=== PATIENT | female | born 1960 | race Caucasian/White ===

== ENCOUNTER 2017-08-22 16:28 | Inpatient (IN) | payer OTHER ==
[~2017-08-22] VITALS: Ht 149.9 cm; Wt 121.6 kg
[2017-08-22 16:33] VITALS: BP 158/100
[2017-08-22] MEDS ORDERED: LIPITOR40 MG PO (16:37)
[2017-08-22] MEDS ORDERED: NEURONTIN600 MG PO (16:37)
[2017-08-22] MEDS ORDERED: VITAMINC500 PO (16:37)
[2017-08-22] MEDS ORDERED: ACIDOPHILUS1 EAC2 PO (16:38)
[2017-08-22] MEDS ORDERED: MAXZIDE-25 MG1 EACH PO (16:38)
[2017-08-22] MEDS ORDERED: ZANTAC 150MG T150 MG PO (16:38)
[2017-08-22] MEDS ORDERED: OMEPRAZOLE40 MG PO (16:38)
[2017-08-22] MEDS ORDERED: LEVEMIR SUBQ (16:39)
[2017-08-22] MEDS ORDERED: GLUCOPHAGE XR500 MG PO (16:39)
[2017-08-22] MEDS ORDERED: HUMALOG100 UNIT/2 SUBQ (16:39)
[2017-08-22] MEDS ORDERED: LISINOPRIL10 MG PO (16:39)
[2017-08-22] MEDS ORDERED: LEVALBUTER1.25 MG/0. INH (16:40)
[2017-08-22] MEDS ORDERED: COMBIVENT INH (16:40)
[2017-08-22] MEDS ORDERED: DUONEB 2.5-0.5 M3 ML INH (16:41)
[2017-08-22] MEDS ORDERED: PROAIR RESPICL90 MCG INH (16:41)
[2017-08-22] MEDS ORDERED: PERCOCET 10-321 EACH PO (16:41)
[2017-08-22] MEDS ORDERED: ASPIR 8181 M1 PO (16:42)
[2017-08-22 17:12] LABS: ABSOLUTE BASOPHILS 0.1 thou/uL (0.0-0.2); ABSOLUTE EOSINOPHILS 0.3 thou/uL (0.0-0.7); ABSOLUTE LYMPHOCYTES 2.9 thou/uL (0.8-5.3); ABSOLUTE MONOCYTES 0.6 thou/uL (0.0-1.2); ABSOLUTE NEUTROPHILS 5.6 thou/uL (1.6-8.1); BASOPHILS 0.6 %; EOSINOPHILS 3.2 %; HEMATOCRIT 48.5 % (37.0-47.0); HEMOGLOBIN 16.2 gm/dL (12.0-15.0); LYMPHOCYTES 30.7 %; MCH 32.2 pg (26.0-34.0); MCHC 33.4 g/dL (28.0-37.0); MCV 96.6 fL (80.0-100.0); MONOCYTES 5.9 %; MPV 8.4 fl. (7.2-11.1); NUCLEATED RBCS 0 /100WBC; PLATELET COUNT* 206 thou/uL (150-400); POLYS 59.6 %; RBC 5.02 mil/uL (4.20-5.00); RDW-CV 14.1 % (10.5-14.5); WBC 9.5 thou/uL (4.0-11.0)
[2017-08-22 17:13] LABS: ANION GAP 8 mmol/L (7-16); BUN 14 mg/dL (7-18); CALCIUM 8.9 mg/dL (8.5-10.1); CHLORIDE 102 mmol/L (98-107); CO2 27 mmol/L (21-32); CREATININE 1.2 mg/dL (0.6-1.3); GLUCOSE 271 mg/dL (70-99); POTASSIUM 4.6 mmol/L (3.5-5.1); SODIUM 137 mmol/L (136-145)
[2017-08-22 17:24] LABS: ALBUMIN 3.2 g/dL (3.4-5.0); ALKALINE PHOSPHATASE 131 U/L (46-116); SGOT 18 U/L (15-37); SGPT 29 U/L (30-65); TOTAL BILIRUBIN 0.3 mg/dL (<0.1-1.0); TOTAL PROTEIN 7.6 g/dL (6.4-8.2); TROPONIN-I LEVEL <0.06 ng/mL (<0.06)
--- NOTE | 2017-08-22 18:23 | NUR ---
AMBULTORY TO BATH ROOM, DINNER TRAY GIVEN, O2 ON
[2017-08-22 20:10] VITALS: BP 104/75
[2017-08-22 20:15] VITALS: BP 114/65
--- NOTE | 2017-08-22 20:15 | NUR ---
ADMITTED TO FLOOR PER CART ACCOMPANIED BY ER STAFF AND FAMILY WITH BELONGINGS. ORIENTED TO ROOM AND CALL LITE. HISTORY OBTAINED AND ASSESSMENT PERFORMED, SEE ADMIT NOTES. [place]. LUNGS DIM, CONGESTED COUGH HEARD-PT GIVEN SPECIMENT CUP AND EDUCATED IN NEED FOR SPUTUM SPECIMEN. L HAND IVF INFUSING PER GRAVITY, TO BE PLACED ON PUMP FOR INFUSION, ABX TO BE GIVEN WHEN RECEIVED FROM PHARMACY. O23L SAT 94%. ACCUCHECK 343, CALL TO BE PLACED TO DR FOR INSULIN ORDERS. UP WITH STEADY GAIT, REFUSING SCD, EDUCATION GIVEN. AOX4, PLEASANT.WILL CONTINUE TO MONITOR AND PROVIDE CARES NEEDED. CALL LITE IN EASY REACH, FAMILY AT BEDSIDE.
[2017-08-22] MEDS ORDERED: XANAX1 MG PO (21:42)
[2017-08-22 22:53] VITALS: BP 155/95
[2017-08-23 04:00] VITALS: BP 143/74
[2017-08-23 05:14] VITALS: BP 122/74
--- NOTE | 2017-08-23 05:56 | NUR ---
NEW ADMIT AT START OF SHIFT. AOX4, UP AD CRIS IN ROOM. LHAND IVF INFUSING PER PUMP, ABX GIVEN ORDERED. HS ACCUCHECK, LEVEMEIR INSULIN GIVEN. SPUTUM SAMPLE SENT TO LAB. NO LABS THIS MORNING. STARTED ON SEPSIS PROTOCOL IN ER BEFORE ADMISSION. O23L NC. RT TX GIVEN. NEEDS UA, PT AWARE. ATE CHICKEN WINGS WITH RANCH DRESSING AND DONUTS AT HS. CO SORE THROAT, DENIES NEED FOR PAIN MED. ABLE TO USE CALL LITE AND MAKE NEEDS KNOWN.
[2017-08-23 08:10] VITALS: BP 113/70
--- NOTE | 2017-08-23 13:40 | NUR ---
Nutrition: Consult received for "diabetes." Pt and were in room. They stated she has had DM for several yrs. She takes insulin, and she is on steroids currently. Wt: 267#. Pt stated the CHO controlled menu is good, but she doesn't have good teeth for some chewing. We discussed the menu and alternative ordering. Pt satisfied with this. Offered DM educ, and pt stated "you can leave the information." Pt stated to her that there might be some new info in the packet that they could read through. RD left information handouts with pt. Encouraged them to call with further questions/concerns. RD expects fair compliance. Mild risk.
[2017-08-23 16:55] VITALS: BP 130/70
--- NOTE | 2017-08-23 17:03 | NUR ---
SW met with pt to complete initial assessment, introduce self, and SW role. Pt lives at home with family and says she has a CPAP and O2 at night through [facility]. Pt wondered about a replacement nebulizer and SW to follow up with Cesilia at [facility] about the possibility of pt receiving new nebulizer. SW to continue to follow.
--- NOTE | 2017-08-23 17:44 | NUR ---
PATIENT REMAINED ALERT AND ORIENTED X'S 4. VITAL SIGNS AND SPO2 STABLE. IV CLEAN, INTACT, FLUIDS INFUSING. PAIN WELL CONTROLLED WITH PAIN MEDS. TOLERATED DIET, NO NAUSEA AND VOMITING. BLOOD SUGARS RUN HIGH, GAVE METFORMIN, SLIDING SCALE INSULIN. PATIENT IS NON-COMPLIANT WITH HER DIABETES AND EATY HOME CPAP SHOULD BE BROUGHT BY FAMILY MEMEBERS TONIGHT. COMPLETED HOURLY ROUNDING. CALL LIGHT WITHIN REACH. WILL CONTINUE TO MONITOR.
--- NOTE | 2017-08-23 17:45 | EKG ---
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
[2017-08-23 21:40] VITALS: BP 106/46
[2017-08-24 04:35] LABS: ABSOLUTE LYMPHOCYTES 3.4 thou/uL (0.8-5.3); ABSOLUTE MONOCYTES 0.7 thou/uL (0.0-1.2); ABSOLUTE NEUTROPHILS 9.4 thou/uL (1.6-8.1); BASOPHILS 0.2 %; EOSINOPHILS 0.2 %; HEMATOCRIT 39.8 % (37.0-47.0); LYMPHOCYTES 24.8 %; MCH 31.6 pg (26.0-34.0); MCHC 32.5 g/dL (28.0-37.0); MCV 97.1 fL (80.0-100.0); MONOCYTES 5.5 %; MPV 8.7 fl. (7.2-11.1); NUCLEATED RBCS 0 /100WBC; PLATELET COUNT* 170 thou/uL (150-400); POLYS 69.3 %; RBC 4.09 mil/uL (4.20-5.00); RDW-CV 13.8 % (10.5-14.5); WBC 13.6 thou/uL (4.0-11.0)
[2017-08-24 04:44] LABS: CALCIUM 7.7 mg/dL (8.5-10.1); CREATININE 1.4 mg/dL (0.6-1.3); MAGNESIUM 1.1 mg/dL (1.8-2.4)
[2017-08-24 04:54] LABS: HEMOGLOBIN 12.9 gm/dL (12.0-15.0)
--- NOTE | 2017-08-24 07:32 | NUR ---
PT SLEPT MOST OF SHIFT. ASSESSMENT DOCUMENTED. MEDS GIVEN PER E-MAR. IV PATENT, FLUIDS INFUSING. PAIN MEDS GIVEN PER E-MAR. NO REPORTS OF NAUSEA. MAGNESIUM REPLACMENT STARTED PER PROTOCOL. WENT INTO PT ROOM AT BEGINING OF SHIFT, ROOM SMELLED VERY HEAVY OF CIGARETTE SMOKE, ASKED PATIENT IF SHE HAS SMOKED IN ROOM AND EDUCATED PT ON RISKS OF SMOKING AND HOSPITAL POLICY. PT BECAME VERY UPSET AND ANGRY, DENYING SMOKING. WILL CONTINUE WITH PLAN OF CARE.
[2017-08-24 08:00] VITALS: BP 111/75
[2017-08-24 15:30] VITALS: BP 97/56
--- NOTE | 2017-08-24 18:00 | NUR ---
PT UP IN HALLS WITH STEADY GAIT. PT SATS IN UPPER 90S ON 3L NC. TOLERATING PO WELL. BG ELEVATED. REPORTS CHRONIC PAIN CONTROLLED WITH PO MEDS
[2017-08-24 20:00] VITALS: BP 112/70
--- NOTE | 2017-08-25 06:58 | NUR ---
Alert and oriented x 4. She has shallow breathing and cough. O2 sat 95% on 3L n/c she wears Cpap at night. She's been up independently to the bathroom, voiding adequately. She's had pain meds x 2 for back pain and right hip. Vitals have been stable. She wasn't sleeping so xanax was given at midnight and she did sleep after that. This am magnesium is low. Electrolyte protocol being followed.
[2017-08-25 07:55] VITALS: BP 111/70
--- NOTE | 2017-08-25 10:26 | NUR ---
SW sent referral and order for nebulizer to [facility] and spoke with [facility] about the referral as well. SW to continue to follow to confirm pending dc date.
[2017-08-25 11:32] LABS: URINE BILIRUBIN NEGATIVE (Negative); URINE BLOOD NEGATIVE (Negative); URINE CLARITY CLEAR; URINE COLOR YELLOW; URINE GLUCOSE-RANDOM NEGATIVE (Negative); URINE KETONES NEGATIVE (Negative); URINE LEUKOCYTES NEGATIVE (Negative); URINE NITRITE NEGATIVE (Negative); URINE PROTEIN NEGATIVE (Negative); URINE SPECIFIC GRAVITY 1.015 (1.005-1.030); URINE UROBILINOGEN 0.2 E.U./dl (0.2-1.0)
[2017-08-25 16:00] VITALS: BP 117/72
--- NOTE | 2017-08-25 16:01 | NUR ---
MG LEVEL OF 1.0 REPLACED THIS AM VIA IV, MG LEVEL NOW 2.9. IV SL, SCHED ABX INFUSED. UP AD CRIS AROUND HALLS AND IN ROOM. INUSLIN GIVEN WITH MEALS ORDERED. PRN PERCOCET GIVEN THIS AFTERNOON FOR BACK PAIN, GOOD RELIEF NOTED. PATIENT HOPING TO GO HOME SOON.
[2017-08-25 20:45] VITALS: BP 156/98
[2017-08-26 00:16] VITALS: BP 122/59
[2017-08-26 03:54] LABS: HEMATOCRIT 42.7 % (37.0-47.0); MCH 31.9 pg (26.0-34.0); MCHC 32.8 g/dL (28.0-37.0); MCV 97.1 fL (80.0-100.0); RBC 4.4 mil/uL (4.20-5.00); RDW-CV 13.9 % (10.5-14.5); WBC 8.6 thou/uL (4.0-11.0)
[2017-08-26 04:18] LABS: ALBUMIN 2.9 g/dL (3.4-5.0); CALCIUM 8.6 mg/dL (8.5-10.1); CREATININE 1.2 mg/dL (0.6-1.3); POTASSIUM 4.7 mmol/L (3.5-5.1); TOTAL BILIRUBIN 0.2 mg/dL (<0.1-1.0); TOTAL PROTEIN 6.1 g/dL (6.4-8.2)
--- NOTE | 2017-08-26 05:29 | NUR ---
PATIENT HAS SLEPT WELL THROUGHOUT THE NIGHT WITHOUT ANY ISSUES. PAIN CONTROLLED WITH ORAL PAIN MEDICATION AND CHARTED. VSS ON 3L 02 VIA CPAP. PATIENT IS UP AD-CRIS AND STEADY. IV IN LEFT HAND-SL. PATIENT INSTRUCTED TO USE CALL LIGHT WHEN NEEDING ASSISTANCE. HOURLY ROUNDS MADE. WILL CONTINUE WITH PLAN OF CARE AND NURSING TO MONITOR.
[2017-08-26 07:45] VITALS: BP 162/86
[2017-08-26] MEDS ORDERED: CIPRO500 MG PO (08:18)
[2017-08-26 10:40] VITALS: BP 162/86
[2017-08-26 10:41] VITALS: BP 162/86
--- NOTE | 2017-08-26 11:45 | NUR ---
PATIENT LEFT UNIT AT 1115. ALERT AND ORIENTED X4. UP AD CRIS IN ROOM. IV DC'D. PAIN BEING MANAGED WITH PO PAIN MEDICATION. DENIES NAUSEA. TOLERATING DIET. ALL PERSONAL ITEMS LEFT WITH PATIENT. DISCHARGE INSTRUCTIONS, PRESCRIPTIONS, AND NEW MEDICATION INFORMATION SENT WITH PATIENT. HOURLY ROUNDS HAVE BEEN MAINTAINED THROUGHOUT SHIFT. LEFT WITH FAMILY MEMBER VIA CAR.
[2017-08-26 11:47] VITALS: BP 162/86
== END 2017-08-26 11:15 | disposition home or self-care (01) | DRG 871 ==
LOC: M.ERS 16:28 → M.TBA-ER 18:00 → M.3W 18:00
PROVIDERS: Emergency Medicine; Internal Medicine; Physician Assistant; ADMIT Internal Medicine
DX: A41.9 Sepsis, unspecified organism (principal); J15.6 Pneumonia due to other Gram-negative bacteria; J96.21 Acute and chronic respiratory failure with hypoxia; J44.0 Chronic obstructive pulmonary disease with (acute) lower respiratory infection; E11.9 Type 2 diabetes mellitus without complications; F17.210 Nicotine dependence, cigarettes, uncomplicated; G47.33 Obstructive sleep apnea (adult) (pediatric); E11.65 Type 2 diabetes mellitus with hyperglycemia; G25.81 Restless legs syndrome; Z90.49 Acquired absence of other specified parts of digestive tract; Z79.4 Long term (current) use of insulin; Z79.82 Long term (current) use of aspirin; Z79.84 Long term (current) use of oral hypoglycemic drugs; Z79.899 Other long term (current) drug therapy

== ENCOUNTER 2018-11-11 12:56 | Inpatient (IN) | payer OTHER ==
[~2018-11-11] VITALS: Ht 149.9 cm; Wt 131.4 kg
[~2018-11-11 12:56] MED LIST: ACIDOPHILUS1 EAC2 PO; ASPIR 8181 M1 PO; CIPRO500 MG PO; COMBIVENT INH; DUONEB 2.5-0.5 M3 ML INH; GLUCOPHAGE XR500 MG PO; HUMALOG100 UNIT/2 SUBQ; LEVALBUTER1.25 MG/0. INH; LEVEMIR SUBQ; LIPITOR40 MG PO; LISINOPRIL10 MG PO; MAXZIDE-25 MG1 EACH PO; NEURONTIN600 MG PO; OMEPRAZOLE40 MG PO; PERCOCET 10-321 EACH PO; PROAIR RESPICL90 MCG INH; VITAMINC500 PO; XANAX1 MG PO; ZANTAC 150MG T150 MG PO
[2018-11-11 13:15] LABS: URINE BILIRUBIN NEGATIVE (Negative); URINE BLOOD NEGATIVE (Negative); URINE CLARITY CLEAR; URINE COLOR YELLOW; URINE GLUCOSE-RANDOM NEGATIVE (Negative); URINE KETONES NEGATIVE (Negative); URINE LEUKOCYTES-REFLEX NEGATIVE (Negative); URINE NITRITE-REFLEX NEGATIVE (Negative); URINE PROTEIN TRACE (Negative); URINE SPECIFIC GRAVITY 1.025 (1.005-1.030); URINE UROBILINOGEN 0.2 E.U./dl (0.2-1.0)
[2018-11-11 13:21] LABS: AMP/METHAMP Negative (Negative); BARBITURATES Negative (Negative); BENZODIAZEPINES POSITIVE (Negative); COCAINE Negative (Negative); METHADONE Negative (Negative); OPIATES Negative (Negative); PCP Negative (Negative); THC POSITIVE (Negative)
[2018-11-11 13:32] VITALS: BP 150/73
[2018-11-11 13:49] LABS: ABSOLUTE BASOPHILS 0.1 thou/uL (0.0-0.2); ABSOLUTE EOSINOPHILS 0.4 thou/uL (0.0-0.7); ABSOLUTE LYMPHOCYTES 2.6 thou/uL (0.8-5.3); ABSOLUTE MONOCYTES 0.4 thou/uL (0.0-1.2); ABSOLUTE NEUTROPHILS 4.9 thou/uL (1.6-8.1); EOSINOPHILS 4.7 %; HEMATOCRIT 43.9 % (37.0-47.0); HEMOGLOBIN 14.5 gm/dL (12.0-15.0); MCH 32.2 pg (26.0-34.0); MCV 97.3 fL (80.0-100.0); MONOCYTES 4.8 %; MPV 7.9 fl. (7.2-11.1); NUCLEATED RBCS 0 /100WBC; PLATELET COUNT* 176 thou/uL (150-400); POLYS 58.5 %; RBC 4.51 mil/uL (4.20-5.00); RDW-CV 14.6 % (10.5-14.5); WBC 8.4 thou/uL (4.0-11.0)
[2018-11-11 14:02] LABS: ANION GAP 7 mmol/L (7-16); BUN 27 mg/dL (7-18); CALCIUM 9.6 mg/dL (8.5-10.1); CHLORIDE 104 mmol/L (98-107); CO2 31 mmol/L (21-32); CREATININE 1.2 mg/dL (0.6-1.3); GLUCOSE 279 mg/dL (70-99); POTASSIUM 5.6 mmol/L (3.5-5.1); SODIUM 142 mmol/L (136-145)
[2018-11-11 14:13] LABS: ALBUMIN 2.8 g/dL (3.4-5.0); ALKALINE PHOSPHATASE 174 U/L (46-116); NT-PRO BRAIN NAT PEPTIDE 52 pg/mL (<300); SGOT 17 U/L (15-37); SGPT 46 U/L (30-65); TOTAL BILIRUBIN 0.4 mg/dL (<0.1-1.0); TOTAL PROTEIN 6.8 g/dL (6.4-8.2); TROPONIN-I LEVEL <0.06 ng/mL (<0.06)
--- NOTE | 2018-11-11 14:20 | EKG ---
[place] [address] ELECTROCARDIOGRAM REPORT Name: MIKE HERBERT Room: [facility]#: [id number] Admission: 11/11/18 Attend Phys: Discharge: Date of : 60 Report #: [id number] THIS REPORT FOR: //name// 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: : 1960 Requested By: Angelita Del Real Order Number: [id number] Cristal MD: Nikko Varma Measurements Intervals [place] Rate: 101 P: 68 [place]: 141 QRS: 1 QRSD: 83 T: 53 QT: 320 QTc: 415 Interpretive Statements Sinus tachycardia Probable anterior infarct, old Compared to ECG 08/22/2017 17:02:47 Sinus rhythm no longer present Myocardial infarct finding still present Electronically Signed On 11-11-2018 14:20:19 CDT by Nikko Varma [email or web address] <ELECTRONICALLY SIGNED> By: Nikko Varma MD, [facility] 11/11/18 1420 1320 1320 Nikko Varma MD, [facility] /EPI
[2018-11-11 15:57] LABS: BE -3.4 mmol/L (-2 to +3); PCO2 46.8 mmHg (35.0-45.0); pH 7.312 (7.340-7.450)
[2018-11-11 16:02] LABS: PO2 45.2 mmHg (75.0-100.0)
[2018-11-11 16:45] VITALS: BP 141/87
[2018-11-11 17:50] VITALS: BP 138/82
--- NOTE | 2018-11-11 18:04 | NUR ---
ASSESSMENT COMPLETE. PT ADMITTED WITH COPD EXACERBATION, PNEUMONIA, HYPOXIA. PT IS ON 6L PER NC, PATIENT DOES NOT WEAR O2 AT HOME. PT IS CURRENT SMOKER, WEARS CPAP AT HS. PT DENIES PAIN AT THIS TIME, PATIENT REPORTS HX OF CHRONIC PAIN. PT IS ACCU CHECK ACHS, TOLERATED DINNER, DENIES N/V. PT IS UP ONE ASSIST WITH CANE. PULMONARY AND CARDIOLOGY CONSULT FOR TOMORROW. IV ABX AND SOLUMEDROL GIVEN IN ER. PT IS SITTING IN CHAIR WITH BLE ELEVATED. PT IS NSR IN 90'S INCREASES WITH ACTIVITY. PT IS SOA WITH MIN EXERTION. SEE ASSESSMENT AND VITALS FOR OTHER DETAILS. CALL LIGHT WITHIN REACH, WILL CONTINUE PLAN OF CARE
[2018-11-12] VITALS: BP 131/70
[2018-11-12 05:00] VITALS: BP 118/68
[2018-11-12 06:10] LABS: GLYCOHEMOGLOBIN (HGB A1C) 9.9 % (4.8-5.6)
--- NOTE | 2018-11-12 07:07 | NUR ---
PT ALERT AND ORIENTED. VSS ON 6L NC. HOME CPAP @ HS. ASSESSMENT DOCUMENTED. MEDS GIVEN PER EMAR. RFA IV-SL. NPC NOTED. HOURLY ROUNDINGS MADE. CALL LIGHT WITHIN REACH. WILL CONTINUE TO MONITOR.
[2018-11-12 08:33] VITALS: BP 129/67
[2018-11-12 09:28] LABS: CALCIUM 9.9 mg/dL (8.5-10.1); CREATININE 1.2 mg/dL (0.6-1.3); MAGNESIUM 1.2 mg/dL (1.8-2.4); POTASSIUM 5.8 mmol/L (3.5-5.1)
[2018-11-12 11:25] VITALS: BP 118/79
--- NOTE | 2018-11-12 12:59 | 2DMMODE ---
[place] [id number] 2 D/M-MODE ECHOCARDIOGRAM Name: MIKE HERBERT Room: [address] IN [facility]#: [id number] Admission: 11/11/18 Attend Phys: Edwin Martini, Discharge: Date of : 60 Date of Service: 11/12/18 1259 Report #: [id number] THIS REPORT FOR: //name// APPROVED REPORT Study performed: 11/12/2018 09:53:39 EXAM: Comprehensive 2D, Doppler, and color-flow Echocardiogram Patient Location: In-Patient Room #: 202 Status: routine BSA: 2.17 HR: 90 bpm BP: 129/67 mmHg Rhythm: NSR Other Information Study Quality: limited Technically limited study due to off axis imaging, body habitus, poor endocardial definition. Indications Dyspnea Echo Enhancing Agent Indication: Endocardial border delineation Agent(s) / Amount(s) Used: Optison 3 cc 2D Dimensions LVOT Diam: 20.13 (18-24mm) Volumes Left Atrial Volume (Systole) LA ESV Index: 24.20 mL/m2 Aortic Valve AoV Peak Warner.: 1.87 m/s AO Peak Gr.: 13.99 mmHg LVOT Max P.84 mmHg AO Mean Gr.: 8.42 mmHg LVOT Mean P.13 mmHg LVOT Max V: 1.79 m/s AO V2 VTI: 41.69 cm LVOT Mean V: 1.24 m/s ERASMO (VTI): 2.95 cm2 LVOT V1 VTI: 38.64 cm Mitral Valve E/A Ratio: 0.75 [place] [id number] 2 D/M-MODE ECHOCARDIOGRAM Name: MIKE HERBERT Room: [address] IN [facility]#: [id number] Admission: 11/11/18 Attend Phys: Edwin Martini, Discharge: Date of : 60 Date of Service: 11/12/18 1259 Report #: [id number] MV Decel. Time: 215.23 ms MV E Max Warner.: 1.19 m/s MV PHT: 62.42 ms MVA (PHT): 3.52 cm2 TDI E/Lateral E': 9.92 E/Medial E': 10.82 Medial E' Warner.: 0.11 m/s Lateral E' Warner.: 0.12 m/s Left Ventricle The left ventricle is normal size. There is normal LV segmental wall motion. There is normal left ventricular wall thickness. Left ventricular systolic function is normal. LVEF is 65-70%. Transmitral Doppler flow pattern suggests impaired LV relaxation. Right Ventricle The right ventricle is normal size. The right ventricular systolic function is normal. Atria The left atrium size is normal. The right atrium size is normal. Aortic Valve Mild aortic valve sclerosis. No aortic regurgitation is present. There is no aortic valvular stenosis. Mitral Valve The mitral valve is normal in structure. There is no mitral valve regurgitation noted. No evidence of mitral valve stenosis. Tricuspid Valve The tricuspid valve is normal in structure. Trace tricuspid regurgitation. Pulmonic Valve Pulmonic valve is not well visualized. Great Vessels The aortic root is normal in size. IVC is normal in size and collapses >50% with inspiration. Pericardium There is [place] [id number] 2 D/M-MODE ECHOCARDIOGRAM Name: MIKE HERBERT Mathieu Room: [address] IN .R.#: [id number] Admission: 11/11/18 Attend Phys: Edwin Martini, Discharge: Date of : 60 Date of Service: 11/12/18 1259 Report #: [id number] <Conclusion> The left ventricle is normal size. There is normal left ventricular wall thickness. Left ventricular systolic function is normal. LVEF is 65-70%. Transmitral Doppler flow pattern suggests impaired LV relaxation. Trace tricuspid regurgitation. IVC is normal in size and collapses >50% with inspiration. <ELECTRONICALLY SIGNED> By: Dominic Mercedes MD, [facility] 11/12/18 1259 1259 1259 Dominic Mercedes MD, FACC /INF
--- NOTE | 2018-11-12 15:26 | NUR ---
ASSUMED CARE OF PT AROUND 729. REFER TO ASSESSMENT. MAGNESIUM REPLACEMENT INITIATED THIS SHIFT. ECHO COMPLETED. COMPRESSION WRAPS APPLIED TO BLE. PT EDUCATED ON FLUID RESTRICTION THIS SHIFT. PT REPORTS UNDERSTANDING AND IS COMPLIANT AT THIS TIME. IV TO RT FA INFILTRATED. NEW IV TO RT WRIST. NO OTHER CONCERNS AT THIS TIME. CLWR. WCTM.
[2018-11-12 15:56] VITALS: BP 113/74
--- NOTE | 2018-11-12 16:01 | NUR ---
Pt was asleep the first time CM went to assess, the second time, Pt was meeting with the cardiac/pulm rehab nurse. CM will f/u later
--- NOTE | 2018-11-12 16:17 | NUR ---
Pt is A&O. Resides at home with her . Active and independent. Pt uses a cane PRN for mobility. Pt has a home cpap and has o2 bleed through at [facility] only, Pt anticipates that she may need o2 with activity at dc. Pt also has a neb. No hx of HH or SNF. Goal is home at dc. Per Pt, anticipate dc within 1-2 days. Following.
[2018-11-12 22:00] VITALS: BP 136/70
[2018-11-13] VITALS: BP 116/67
[2018-11-13 04:00] VITALS: BP 136/76
[2018-11-13 05:41] LABS: HEMATOCRIT 44.5 % (37.0-47.0); HEMOGLOBIN 14.7 gm/dL (12.0-15.0); MCH 31.9 pg (26.0-34.0); MCV 96.9 fL (80.0-100.0); MPV 9.1 fl. (7.2-11.1); RBC 4.59 mil/uL (4.20-5.00); RDW-CV 14.9 % (10.5-14.5); WBC 11.4 thou/uL (4.0-11.0)
[2018-11-13 05:47] LABS: ANION GAP 11 mmol/L (7-16); BUN 40 mg/dL (7-18); CHLORIDE 101 mmol/L (98-107); CO2 29 mmol/L (21-32); CREATININE 1.3 mg/dL (0.6-1.3); GLUCOSE 278 mg/dL (70-99); POTASSIUM 5.2 mmol/L (3.5-5.1); SODIUM 141 mmol/L (136-145)
[2018-11-13 05:56] LABS: TROPONIN-I LEVEL <0.06 ng/mL (<0.06)
--- NOTE | 2018-11-13 06:44 | NUR ---
PATIENT SLEPT WELL DURING THIS SHIFT. PT WEARS HOME CPAP AT NIGHT AND 6LITERS PER NC DURING THE DAY. PT UP AD CRIS TO BATHROOM. PT C/O PAIN IN IV SITE WHEN FLUSHING LAST NIGHT BUT BETTER THIS AM. GOOD BLOOD RETURN NOTED. PT GETS SHEDULED PERCOCET FOR LOWER EXTREMITY PAIN. FREQUENTLY USED ITEMS AND CALL LIGHT WITHIN REACH. SIDERAILS UPX2. WILL CONTINUE TO MONITOR.
[2018-11-13 07:09] VITALS: BP 137/73
--- NOTE | 2018-11-13 08:05 | CON ---
[address] [address] CONSULTATION Name: PIEDADMIKE E Room: [address] ADM IN M.R.#: [id number] Admission: 11/11/18 Attend Phys: Edwin Martini MD Discharge: Date of : 60 Report #: [id number] THIS REPORT FOR: //name// CC: Edwin Clifton ATTENDING PHYSICIAN: Edwin Martini MD LOCATION: The patient is located in room #202. INDICATION FOR CONSULTATION: COPD, obstructive sleep apnea. HISTORY OF PRESENT ILLNESS: The patient is a 58-year-old female, current smoker, who has been recently on the road following the rolling stones around, presented to the Emergency Department yesterday on 11/11/2018, with shortness of air. She was hypoxic in her primary care physician's office. O2 sats were 85% and below on room air. Her room air pO2 was noted 45. She does have oxygen at home, but she wears at night with her CPAP machine. She is supposed to be on 3 liters at night and then CPAP at 8 cm with a full facemask. Her carboxyhemoglobin was quite elevated at 8.9% and she has been smoking about 2 packs of cigarettes a day. She has increased cough with wheezing, shortness of air. She is in much denial today saying she wants to go home soon that she feels fine. She has leg pain and her daughter was with her at the bedside. The patient has shortness of breath when she gets up and walks to the bathroom. She is attempting to take care of her ill father at home who also continues to smoke, but the patient herself smokes 2 packs a day and smokes within 5 minutes after arising in the morning. She had one episode to her exacerbation in 2018 with bronchitis and wheeze, states she does not have frequent exacerbations at home though. PAST MEDICAL HISTORY: COPD for the last 5 to 8 years. She has been oxygen and CPAP dependent for her obstructive sleep apnea over the last 3 years. Takes nebulizer treatments at home also. ALLERGIES: SHE HAS ALLERGIES OR INTOLERANCE TO WELLBUTRIN, WHICH GIVES HER HEADACHE. OUTPATIENT MEDICATIONS AT HOME: She was on a round of Cipro, but she stopped that in 08/2017, she is on DuoNeb treatments 4 times a day, lisinopril 10 mg at bedtime, levalbuterol 1.25 mg every 8 hours p.r.n., alprazolam 1 mg t.i.d. p.r.n. and also supposed to be on Montelukast 10 mg daily, he is on metformin 1000 mg b.i.d., also on oxycodone and Percocet 10 mg every 6 hours, sliding scale insulin, ranitidine 150 mg b.i.d., Maxzide 25 mg 1 tablet daily, gabapentin 600 mg t.i.d. Currently in hospital; she is on IV Solu-Medrol 60 mg IV q. and her oxygen is supposed to be at 3 [place] [address] CONSULTATION Name: MIKE HERBERT Room: [address] IN M.R.#: [id number] Admission: 07/08/19 Attend Phys: Edwin Martini MD Discharge: Date of : 60 Report #: [id number] OTHER PAST MEDICAL HISTORY: Chronic lumbar pain, chronic back pain, obstructive sleep apnea with restless legs syndrome, insomnia, COPD and morbid obesity as well as diabetes mellitus with peripheral neuropathy. PAST SURGICAL HISTORY: Include cholecystectomy. FAMILY HISTORY: Negative for premature cardiopulmonary disease. Her father is in ill health at home. SOCIAL HISTORY: The patient works at home. She has an adult daughter. She smokes 2 packs of cigarettes a day and has about a 28-[id number]-[id number] history of smoking. 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 Denies any other illicit drug use. Denies any significant alcohol use. REVIEW OF SYSTEMS: Otherwise, 14-point review of systems reviewed and negative except for pertinent positives noted in HPI. PHYSICAL EXAMINATION: GENERAL: This is a pleasant 58-year-old female in no acute distress. She is sitting in the chair and stating she is ready to go home. VITAL SIGNS: Blood pressure is 130/67, heart rate 84, respirations 16, saturation on 3 liters is 93%. She is 5 feet tall, weight 132 kilograms or 280 pounds, BMI is 59. HEENT: Unremarkable. Pharynx is clear. Mouth is crowded. Mallampati score of 3. NECK: Shows redundant neck tissue with no masses or adenopathy. CHEST: Shows diminished breath sounds with bilateral expiratory wheeze. CARDIOVASCULAR: Regular rate and rhythm without murmur, gallop or rub. Heart rate is 84. ABDOMEN: Obese without masses or megaly. EXTREMITIES: No calf tenderness. No cyanosis, clubbing or edema. NEUROLOGIC: Grossly intact. She moves her arms and legs to exam. LABORATORY DATA: Hemoglobin is 14, white count 8400, platelets are 176,000. Eosinophil count is only 400, lymphocytes were 31%. Sodium is 138; potassium is 5.8, going to be rechecked; chloride is 103, carbon dioxide is 25, BUN is 32, creatinine 1.2, glucose is 330 and magnesium is 1.2. I do not have any PFTs on this patient. ABGs done yesterday afternoon at 4:00 in the Emergency Department on room air showed a pO2 of 45, pH 7.31, pCO2 is 47, bicarbonate is 23, O2 sat was 75%, carboxyhemoglobin was 8.9% at critical level. Chest x-ray shows COPD, hyperinflation. She has enlarged pulmonary arteries on her CAT scan of the chest and no pulmonary emboli were noted. Also, some scarring of the left lung base and some restrictive lung disease with low lung volumes. Previous venous Dopplers have been negative [place] [address] CONSULTATION Name: MIKE HERBERT Room: [address] IN [facility].#: [id number] Admission: 11/11/18 Attend Phys: Edwin Martini MD Discharge: Date of : 60 Report #: [id number] IMPRESSION: 1. Moderately severe chronic obstructive pulmonary disease with pulmonary hypertension. 2. Obstructive sleep apnea, on CPAP at 8 cm of full facemask and oxygen 3 L bled in at night with pulmonary hypertension. 3. Morbid obesity. 4. Chronic tobacco use. 5. Diabetes with nephropathy and neuropathy, some vasculopathy noted also. 6. Noncompliance. PLAN: I encouraged the patient to discontinue smoking and smoking all cigarettes including marijuana cigarettes, explained to her is going to cause her more small airways disease and surely she has a carboxyhemoglobin of 8.9, which is quite high and elevated. Eventually that will cause her demise from her COPD and also probably cardiovascular disease also. Keep her on DuoNeb treatments at home. Add some montelukast or Singulair and either Anoro or adding long-acting beta agonist with an inhaled corticosteroid such as Symbicort or Breo may be helpful with her. Again discontinue smoking and any illicit drug use and inhaled marijuana would be helpful. She will need some PFTs or spirometry in the future, may need a repeat sleep study and also needs an echocardiogram at some point in time to evaluate for pulmonary hypertension. We will repeat a blood gas on her on room air in the next couple of days to make sure that is stable. She needs to do some pulmonary rehab once she gets her father's situation under control. Thanks again for allowing us to participate in this lady's care. We will follow up along with you while she is in the hospital. <ELECTRONICALLY SIGNED> By: Pina Brody MD 11/13/18 0805 1130 [id number] Ohara MD /nt
[2018-11-13 09:54] LABS: CHOLESTEROL 164 mg/dL (<200); HDL CHOLESTEROL 50 mg/dL (>40); LDL CHOLESTEROL 91 mg/dL (<100); SERUM ASSESSMENT Clear; TC:HDL 3.3 Ratio (Not establshd); TRIGLYCERIDE 117 mg/dL (<150); VLDL 23 mg/dL (<40)
[2018-11-13 11:30] VITALS: BP 101/52
[2018-11-13 16:30] VITALS: BP 114/74
--- NOTE | 2018-11-13 17:21 | NUR ---
ASSESSMENT COMPLETE. PT ALERT AND ORIENTED X4. PT AGITATED THIS MORNING WITH "PEOPLE COMING IN OUT AT, CANT YOU ALL STOP COMING IN". PATIENT GIVEN PLAN FOR THE DAY, VERBALIZED UNDERSTANDING. CHEST XRAY THIS AM. PT IS ON 6L PER NC, CPAP AT HS. ACCU CHECK ACHS. MAG REPLACED TODAY. PT IS FALL RISK, BED ALARM ON. SLIDING SCALE ORDERED, METFORMIN STARTED TONIGHT. PT HAS PAIN MEDICATION SCHEDULED FOR CHRONIC PAIN. BLE WRAPS, ELEVATED WITH PILLOWS. PT SR ON TELE MONITOR, VSS. PT HAS NO OTHER CONCERNS AT THIS TIME. SEE ASSESSMENT AND VITALS FOR OTHER DETAILS, CALL LIGHT WITHIN REACH. WILL CONTINUE PLAN OF CARE
[2018-11-13 20:00] VITALS: BP 108/58
[2018-11-14] VITALS: BP 116/83
--- NOTE | 2018-11-14 01:32 | NUR ---
PT ALERT ORIENTED. UP TO BR WITH CANE AND STAND BY ASSIST. TELEMETRY SHOWS SR. O2 AT 4 LITERS NC DAYS. CPAP WITH 4 LITER O2 BLEED IN HS. SCHEDULED OXICODONE GIVEN FOR DEBORAH LOWER LEG PAIN.
[2018-11-14 04:00] VITALS: BP 124/79
[2018-11-14 05:42] LABS: CALCIUM 9.9 mg/dL (8.5-10.1); CREATININE 1.3 mg/dL (0.6-1.3); MAGNESIUM 1.7 mg/dL (1.8-2.4)
[2018-11-14 08:01] VITALS: BP 131/84
--- NOTE | 2018-11-14 08:20 | NUR ---
Received order to arrange home 02 for pt. Pt is currently on service with [facility] for home oxygen, including concentrator and portable tanks, and has been for several years.
[2018-11-14 09:11] LABS: BE 3.6 mmol/L (-2 to +3); PO2 75.4 mmHg (75.0-100.0)
[2018-11-14 09:14] LABS: PCO2 51.7 mmHg (35.0-45.0)
--- NOTE | 2018-11-14 10:08 | NUR ---
RECEIVED REPORT FROM RICKY AND ASSUMED CARE OF PT @ 6216.PT IS A/O X4,VSS,TRACING SR ON THE MONITOR.IV PATENT AND SALINE LOCKED.PT REMAINS ON 4L O2 NC.PT IS CALM AND COOPERATIVE WITH C/O PAIN IN LEGS AND HIPS.PT IS UP AD CRIS IN ROOM.WILL CONTINUE TO MONITOR.
[2018-11-14 11:51] VITALS: BP 137/79
[2018-11-14 16:00] VITALS: BP 104/55
--- NOTE | 2018-11-14 17:24 | NUR ---
VSS.CARDIAC MONITORING IN PLACE WITH NO CHANGES.PT REMAINS ON 4L O2 NC.NEW IV PLACED IN L WRIST AND SALINE LOCKED.PAIN MANAGED WELL WITH PO MEDICATIONS.PT AMBULATED IN ROOM WITH CALL LIGHT WITHIN REACH.HOURLY ROUNDING COMPLETED FOR PT SAFETY.WILL CONTINUE TO MONITOR FOR DURATION OF SHIFT.
[2018-11-14 20:30] VITALS: BP 121/61
[2018-11-15 00:05] VITALS: BP 116/74; BP 117/68
[2018-11-15 04:10] VITALS: BP 111/49
[2018-11-15 04:59] LABS: CALCIUM 9.9 mg/dL (8.5-10.1); CREATININE 1.6 mg/dL (0.6-1.3); MAGNESIUM 1.3 mg/dL (1.8-2.4); POTASSIUM 4.4 mmol/L (3.5-5.1)
--- NOTE | 2018-11-15 05:19 | NUR ---
PT SLEPT MOST OF SHIFT. ASSESSMENT DOCUMENTED. MEDS GIVEN PER E-JUL. IV PATENT. O2 WORN AT 3L NC THIS SHIFT, CPAP WORN WITH 3L BLED IN WHILE SLEEPING. SCHEDULED PAIN MEDS GIVEN PER E-MAR. PT EXPRESSES CONCERNS WITH MAINTAINING HER FLUID RESTRICTION. PT EDUCATED. WILL CONTINUE WITH PLAN OF CARE.
[2018-11-15 07:00] VITALS: BP 119/68
--- NOTE | 2018-11-15 07:09 | NUR ---
VISITED PATIENT FOR HEART FAILURE MEDICATION EDUCATION, PROVIDED HANDOUT TO PATIENT AND DISCUSSED HER MEDICATIONS: METOPROLOL, LISINOPRIL, AND FUROSEMIDE. PATIENT ACKNOWLEDGED UNDERSTANDING AND INFORMED PATIENT THAT PHARMACY IS AVAILABLE IF SHE HAS QUESTIONS. ONDINA GOOD, [facility] CARRY OUT CLERK I AGREE WITH ABOVE.
[2018-11-15] MEDS ORDERED: CEFDINIR300 MG PO (07:45)
[2018-11-15] MEDS ORDERED: AZITHROMYCIN 2250 MG PO (07:45)
[2018-11-15] MEDS ORDERED: ADVAIR HFA 230M12 GM INH (07:48)
[2018-11-15] MEDS ORDERED: LASIX 40 MG TAB40 M1 PO (07:48)
[2018-11-15] MEDS ORDERED: SINGULAIR 10 MG10 M1 PO (07:48)
[2018-11-15] MEDS ORDERED: PREDNISONE 20 M20 MG PO (07:48)
[2018-11-15] MEDS ORDERED: MUCINEX600 MG PO (07:48)
--- NOTE | 2018-11-15 10:31 | NUR ---
INITAL ASSESSMENT COMPLETED. VSS. PT C/O 10/14 CHRONIC HIP PAIN. TRACING SR ON MONITOR. PT DENIES ANY FURTHER NEEDS AT THSI TIME. HOURLY ROUNDING FOR PT SAFETY. CLWR.
[2018-11-15 12:24] VITALS: BP 134/78
== END 2018-11-15 17:09 | disposition home or self-care (01) | DRG 177 ==
LOC: M.ERS 12:56 → M.TBA-ER 15:21 → M.2W 16:06
PROVIDERS: Internal Medicine Pulmonary Disease; Personal Emergency Response Attendant; Physician Assistant; Registered Nurse; ADMIT Internal Medicine
PROC: 5A09357 Assistance with Respiratory Ventilation, Less than 24 Consecutive Hours, Continuous Positive Airway Pressure (ICD-10-PCS; principal; 2018-11-14)
DX: J15.6 Pneumonia due to other Gram-negative bacteria (principal); J96.21 Acute and chronic respiratory failure with hypoxia; J96.22 Acute and chronic respiratory failure with hypercapnia; I50.33 Acute on chronic diastolic (congestive) heart failure; J44.1 Chronic obstructive pulmonary disease with (acute) exacerbation; E44.1 Mild protein-calorie malnutrition; L03.116 Cellulitis of left lower limb; L03.115 Cellulitis of right lower limb; Z68.43 Body mass index [BMI] 50.0-59.9, adult; J44.0 Chronic obstructive pulmonary disease with (acute) lower respiratory infection; I13.0 Hypertensive heart and chronic kidney disease with heart failure and stage 1 through stage 4 chronic kidney disease, or unspecified chronic kidney disease; E66.01 Morbid (severe) obesity due to excess calories; G25.81 Restless legs syndrome; G89.29 Other chronic pain; M54.5 Low back pain; G47.00 Insomnia, unspecified; F41.1 Generalized anxiety disorder; E11.22 Type 2 diabetes mellitus with diabetic chronic kidney disease; E11.42 Type 2 diabetes mellitus with diabetic polyneuropathy; N18.3 Chronic kidney disease, stage 3 (moderate); F12.90 Cannabis use, unspecified, uncomplicated; F17.210 Nicotine dependence, cigarettes, uncomplicated; I87.2 Venous insufficiency (chronic) (peripheral); I27.20 Pulmonary hypertension, unspecified; Z90.49 Acquired absence of other specified parts of digestive tract; Z79.891 Long term (current) use of opiate analgesic; Z91.19 Patient's noncompliance with other medical treatment and regimen; Z79.82 Long term (current) use of aspirin; Z79.899 Other long term (current) drug therapy; Z79.4 Long term (current) use of insulin

== ENCOUNTER 2019-04-09 17:05 | Inpatient (IN) | payer OTHER ==
[~2019-04-09] VITALS: Ht 149.9 cm; Wt 122.5 kg
[2019-04-09 17:05] VITALS: BP 111/47
[~2019-04-09 17:05] MED LIST changes: +ADVAIR HFA 230M12 GM INH; +AZITHROMYCIN 2250 MG PO; +CEFDINIR300 MG PO; +GLUCOPHAGE 500 MG PO; -GLUCOPHAGE XR500 MG PO; +LASIX 40 MG TAB40 M1 PO; +MUCINEX600 MG PO; +PREDNISONE 20 M20 MG PO; +SINGULAIR 10 MG10 M1 PO
[2019-04-09 17:53] LABS: ABSOLUTE BASOPHILS 0.1 thou/uL (0.0-0.2); ABSOLUTE LYMPHOCYTES 1.2 thou/uL (0.8-5.3); ABSOLUTE MONOCYTES 1.2 thou/uL (0.0-1.2); BASOPHILS 0.4 %; EOSINOPHILS 0.3 %; HEMATOCRIT 49.1 % (37.0-47.0); HEMOGLOBIN 16.5 gm/dL (12.0-15.0); LYMPHOCYTES 7.5 %; MCH 32.6 pg (26.0-34.0); MCHC 33.6 g/dL (28.0-37.0); MONOCYTES 7.3 %; NUCLEATED RBCS 0 /100WBC; PLATELET COUNT* 230 thou/uL (150-400); POLYS 84.5 %; RBC 5.06 mil/uL (4.20-5.00); RDW-CV 14.4 % (10.5-14.5); WBC 16.6 thou/uL (4.0-11.0)
[2019-04-09 18:02] LABS: CREATININE 2.3 mg/dL (0.6-1.3); POTASSIUM 4.6 mmol/L (3.5-5.1)
[2019-04-09 18:13] LABS: TOTAL BILIRUBIN 0.7 mg/dL (<0.1-1.0); TOTAL PROTEIN 8.1 g/dL (6.4-8.2)
[2019-04-09 18:18] LABS: APTT 27.6 Seconds (25.0-31.3); PROTIME 10.7 Seconds (9.20-11.50)
[2019-04-09 22:00] VITALS: BP 122/60
[2019-04-09 23:13] LABS: MAGNESIUM 1.7 mg/dL (1.8-2.4)
[2019-04-10 01:14] VITALS: BP 114/62
[2019-04-10 04:00] VITALS: BP 101/53
[2019-04-10 04:42] LABS: URINE BILIRUBIN NEGATIVE (Negative); URINE BLOOD NEGATIVE (Negative); URINE CLARITY CLEAR; URINE COLOR DARK YELLOW; URINE GLUCOSE-RANDOM NEGATIVE (Negative); URINE KETONES TRACE (Negative); URINE LEUKOCYTES-REFLEX NEGATIVE (Negative); URINE NITRITE-REFLEX NEGATIVE (Negative); URINE PROTEIN TRACE (Negative); URINE SPECIFIC GRAVITY >= 1.030 (1.005-1.030); URINE UROBILINOGEN 0.2 E.U./dl (0.2-1.0)
[2019-04-10 05:01] LABS: ABSOLUTE BASOPHILS 0.1 thou/uL (0.0-0.2); ABSOLUTE LYMPHOCYTES 1.6 thou/uL (0.8-5.3); ABSOLUTE MONOCYTES 1.3 thou/uL (0.0-1.2); ABSOLUTE NEUTROPHILS 10.6 thou/uL (1.6-8.1); BASOPHILS 0.7 %; EOSINOPHILS 0.2 %; LYMPHOCYTES 11.9 %; MCH 31.7 pg (26.0-34.0); MCHC 32.7 g/dL (28.0-37.0); MONOCYTES 9.9 %; MPV 8.4 fl. (7.2-11.1); NUCLEATED RBCS 0 /100WBC; PLATELET COUNT* 224 thou/uL (150-400); POLYS 77.3 %; RBC 4.54 mil/uL (4.20-5.00); RDW-CV 14.4 % (10.5-14.5); WBC 13.6 thou/uL (4.0-11.0)
[2019-04-10 05:11] LABS: HEMOGLOBIN 14.4 gm/dL (12.0-15.0)
--- NOTE | 2019-04-10 06:45 | NUR ---
Pt is aox4, running NSR on telemetry, respirations are labored, but even. Pt is not in acute distress at this time. Will continue to monitor.
[2019-04-10 07:45] VITALS: BP 84/43
[2019-04-10 12:00] VITALS: BP 110/56
--- NOTE | 2019-04-10 15:11 | NUR ---
MET WITH PT TO DISCUSS HOME SITUATION/DC PLANNING. PT LIVES WITH SPOUSE, IS FAIRLY INDEPENDENT AT HOME. USES O2, NEB AND CPAP THRU [facility]. ALSO HAS CANE. HAS NOT HAD HH IN PAST. 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 PT STATES SHE CARES FOR HER 86Y/O FATHER. PT PLANS TO RETURN HOME AT DC. C/O OF LEFT KNEE PAIN, GIVEN ICE PACK. ENCOURAGED HER TO DISCUSS WITH . WILL FOLLOW
--- NOTE | 2019-04-10 15:51 | EKG ---
[place] [address] ELECTROCARDIOGRAM REPORT Name: MIKE HERBERT Room: [place] [address] ADM IN M.R.#: [id number] Admission: 04/09/19 Attend Phys: Torie Pelaez Discharge: Date of : 60 Report #: [id number] THIS REPORT FOR: //name// [facility] ED Test Date: 2019-04-09 Test Time: 17:12:02 Pat Name: MIKE HERBERT Department: Room: [facility] Gender: F Recorder Of Deeds: : 1960 Requested By: Esteban Ramirez Order Number: [id number] MD: Randy Bolanos Measurements Intervals [place] Rate: 92 P: 68 ME: 140 QRS: 23 QRSD: 86 T: 55 QT: 334 QTc: 414 Interpretive Statements Sinus rhythm Consider right atrial enlargement possible anteroseptal scar Low voltage, precordial leads Compared to ECG 11/11/2018 13:20:22 Low QRS voltage now present Sinus tachycardia no longer present Electronically Signed On 04-10-2019 15:50:47 [employer]ONRY INSTRU[employer] by Randy Bolanos [email or web address] <ELECTRONICALLY SIGNED> By: Randy Bolanos MD, [facility] 04/10/19 1550 171 171 Randy Bolanos MD, [facility] /EPI
[2019-04-10 16:00] VITALS: BP 106/53
--- NOTE | 2019-04-10 19:15 | NUR ---
ASSUMED CARE OF PT AT 0730. PT LYING IN BED. PT A&0X4, COMPLAINS OF PAIN TO BACK- TREATED BY NOC SHIFT WITH MINIMAL RELIEF. PT LETHARGIC THROUGHOUT SHIFT, SCHEDULED NARCOTICS AND BENZOS HELD THIS AM. PT BLOOD PRESSURE SOFT THIS AM- 80'S/40'S- DR. BEAR NOTIFIED- ORDERS RECEIVED FOR 1 L IVF. REFER TO EMAR. AM BLOOD PRESSURE MEDICATIONS HELD WELL. BLOOD PRESSURE BETTER THIS AFTERNOON- 110'S/80'S. ON 4-5L NC SAT 94%, PT STATES SHE WEARS 3L AT HOME. PT BROUGHT HOME CPAP AND PT USES PRN AND HS. PT UP WITH SBA TO BATHROOM. PHYSICAL THERAPY ORDERED-PT TOLERATED WELL. AM ASSESSMENT CHARTED. MEDICATIONS PER JUL. PT REPOSITIONS SELF. HOURLY ROUNDING OBSERVED. BED IN LOW POSITION. CALL LIGHT WITHIN REACH. WILL CONTINUE PLAN OF CARE.
[2019-04-10 20:00] VITALS: BP 106/59
[2019-04-11] VITALS (7 sets, daily range): BP systolic 95–126; BP diastolic 48–84
[2019-04-11 05:25] LABS: ABSOLUTE BASOPHILS 0.1 thou/uL (0.0-0.2); ABSOLUTE EOSINOPHILS 0.2 thou/uL (0.0-0.7); ABSOLUTE LYMPHOCYTES 1.6 thou/uL (0.8-5.3); ABSOLUTE MONOCYTES 0.8 thou/uL (0.0-1.2); ABSOLUTE NEUTROPHILS 6.9 thou/uL (1.6-8.1); BASOPHILS 1.1 %; EOSINOPHILS 2.6 %; HEMOGLOBIN 12.6 gm/dL (12.0-15.0); LYMPHOCYTES 16.6 %; MCH 32.3 pg (26.0-34.0); MCHC 33.2 g/dL (28.0-37.0); MCV 97.4 fL (80.0-100.0); MONOCYTES 7.8 %; MPV 8.6 fl. (7.2-11.1); NUCLEATED RBCS 0 /100WBC; PLATELET COUNT* 184 thou/uL (150-400); POLYS 71.9 %; RDW-CV 14.7 % (10.5-14.5); WBC 9.6 thou/uL (4.0-11.0)
--- NOTE | 2019-04-11 07:40 | NUR ---
VSS. SEE MAR. SEE CHARTING. PROGRESSING TOWARDS GOALS. FALL PRECAUTIONS IN PLACE. HOURLY ROUNDING FOR SAFETY.
--- NOTE | 2019-04-11 12:55 | NUR ---
ASSUMED CARE OF PT AT 0730. PT RESTING IN BED. A&0X4, COMPLAINS OF PAIN TO BACK AND LEFT KNEE. TREATED WITH SCHEDULED OXYCODONE WITH PARTIAL RELIEF. ICE PACK GIVEN FOR RELIEF WELL. PT STATES EMS STEPPED ON HER KNEE WHEN THEY CAME TO HER HOUSE AND PICKED HER UP AND ITS BEEN HURTING EVERY SINCE. DR TRINIDAD HERE TO SEE PT. ORDERS RECEIVED FOR XRAY OF LEFT KNEE AND ORTHO CONSULT. 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 ON 4L NC SAT 95%. PT STATES SHE HAS SHORTNESS OF BREATH WITH EXERTION. SHOWERED WITH ASSIST THIS AM. PT UP SBA WITH WALKER TO BATHROOM. SPUTUM CULTURE SENT TO LAB. AWAITING RESULTS. PT STARTED ON PO STEROIDS. GOAL FOR TODAY IS TITRATE OXYGEN, INCREASE ACTIVITY AND PAIN MGMT. AM ASSESSMENT CHARTED. MEDICATIONS PER MAR. PT REPOSITIONS SELF. HOURLY ROUNDING OBSERVED. BED IN LOW POSITION. CALL LIGHT WITHIN REACH. WILL CONTINUE PLAN OF CARE.
--- NOTE | 2019-04-11 19:37 | NUR ---
NO ACUTE CHANGES THROUGHOUT SHIFT. REFER TO CHARTING. PT HAD XRAY LEFT KNEE- REFER TO RESULTS. ORTHO SAW PT TODAY-ORDERS RECEIVED FOR LIDOCAINE PATCH AND PHYSICAL THERAPY. PT DROWSY THIS AFTERNOON- SCHEDULED OXYCODONE AND XANAX HELD. PROBABLE DISCHARGE HOME TOMORROW 04/12. PROGRESSING TOWARDS GOALS. MEDICATIONS PER JUL. PT REPOSITIONS SELF. HOURLY ROUNDING OBSERVED. BED IN LOW POSITION. CALL LIGHT WITHIN REACH. WILL CONTINUE PLAN OF CARE.
--- NOTE | 2019-04-12 01:05 | NUR ---
ASSUMED CARE OF PT AT 1900. PT IS ALERT AND ORIENTED. VSS. PERRLA. PT WAS VERY HARD TO AROUSE AT THE BEGINNING OF THE SHIFT. PAIN MNEDS HELD UNTIL 2400. PT IS IN SINUS RYTHM ON THE TELEMETRY. PT IS RESTING COMFORTABLY IN BED. RESPIRATIONS ARE EVEN AND NONLABORED. WILL CONTINUE TO MONITOR PT.
[2019-04-12 04:00] VITALS: BP 109/64
[2019-04-12 08:00] VITALS: BP 97/58
--- NOTE | 2019-04-12 11:57 | NUR ---
ASSUMED CARE OF PATIENT THIS AM AT 0730. PATIENT IS ALERT AND ORIENTED X 4. SHE C/O PAIN AT 7 ON PAIN SCALE IN HER BACK AND KNEE. PATIENT MEDICATED FOR PAIN THROUGHOUT THE DAY. HER BLOOD SUGARS WERE > [address] BOB NOTIFIED. PATIENT PLACED ON HIGH DOSE SLIDING SCALE. TELE SHOWS NSR. PATIENT CONTINUES ON O2 AT 4 LITERS. WILL CONTINUE TO MONITOR.
[2019-04-12 11:59] VITALS: BP 126/61
[2019-04-12 15:36] VITALS: BP 142/83
[2019-04-12 19:09] LABS: ABSOLUTE BASOPHILS 0.1 thou/uL (0.0-0.2); ABSOLUTE LYMPHOCYTES 1.3 thou/uL (0.8-5.3); ABSOLUTE MONOCYTES 0.4 thou/uL (0.0-1.2); ABSOLUTE NEUTROPHILS 8.6 thou/uL (1.6-8.1); BASOPHILS 0.9 %; HEMATOCRIT 41.2 % (37.0-47.0); LYMPHOCYTES 12.7 %; MCH 32.6 pg (26.0-34.0); MONOCYTES 3.9 %; MPV 8.6 fl. (7.2-11.1); NUCLEATED RBCS 0 /100WBC; PLATELET COUNT* 255 thou/uL (150-400); POLYS 82.5 %; RBC 4.29 mil/uL (4.20-5.00); RDW-CV 14.3 % (10.5-14.5); WBC 10.4 thou/uL (4.0-11.0)
[2019-04-12 19:20] LABS: ALBUMIN 2.7 g/dL (3.4-5.0); CALCIUM 10.9 mg/dL (8.5-10.1); CREATININE 1.9 mg/dL (0.6-1.3); TOTAL BILIRUBIN 0.2 mg/dL (<0.1-1.0); TOTAL PROTEIN 7.9 g/dL (6.4-8.2)
[2019-04-12 20:00] VITALS: BP 100/53
[2019-04-13 00:30] VITALS: BP 101/47
--- NOTE | 2019-04-13 02:08 | NUR ---
PT IS VERY DROWSY AND LETHARGIC. FOUND PT PASSED OUT WITH CPAP MASK OFF AND O2 OFF. PT WAS ABLE TO ANSWER QUESTIONS BUT WAS TALKING VERY SLOW AND HAD A HARD TIME WAKING UP. PT IS A+O X 4 BUT FORGETFUL TO KEEP OC ON VS NON-COMPLIANCE. ASSISTED PT TO BATHROOM. PT USED AND WALKER AND TOOK SEVERAL MINUTES TO WALK FROM THE BED TO THE TOILET. OFFERED PT TO USE COMMODE. PT REFUSED. THEN PT SAT ON THE TOILET FOR 15 MINUTES "TRYING TO PEE." PT KEPT FALLING ASLEEP ON THE TOILET BUT WAS ABLE TO WAKE UP EASILY WITH VOICE. PT REQUIRED EXTENSIVE PROMPTING TO GET OFF THE TOILET AND ASSIST BACK INTO BED. PT DID BECOME AGITATED WITH PROMPTING FROM STAFF TO GET UP AND ASSITED BACK INTO BED. HELD BP MEDS AND PT DIDNT KNOW HOME INSULIN DOSE SO REQUESTED HALF OF SLIDING SCALE AND FULL LANTUS DOSE GIVEN. FREQUENT ROUNDING ON PT WITH MENTAL STATUS AND TO KEEP CPAP ON. PT DOES BECOME MORE ALERT AND QUICKER TO ANSWER QUESTIONS THE MORE SHE WAKES UP. THIS APPPEARS TO BE PATIENTS BASELINE PER READING CHART NOTES AND OTHER STAFF THAT HAS TAKEN CARE OF PATIENT ON PRIOR NIGHTS. CALL LIGHT IN REACH. ALSO HOLDING OPIATES UNTIL PT IS LESS LETHARGIC.
[2019-04-13 04:00] VITALS: BP 100/57
[2019-04-13 04:38] LABS: HEMATOCRIT 38.8 % (37.0-47.0); HEMOGLOBIN 12.9 gm/dL (12.0-15.0); MCH 31.7 pg (26.0-34.0); MCHC 33.2 g/dL (28.0-37.0); MCV 95.7 fL (80.0-100.0); MPV 8.2 fl. (7.2-11.1); RBC 4.05 mil/uL (4.20-5.00); RDW-CV 14.4 % (10.5-14.5); WBC 9.9 thou/uL (4.0-11.0)
[2019-04-13 05:25] LABS: ALBUMIN 2.3 g/dL (3.4-5.0); CALCIUM 10.1 mg/dL (8.5-10.1); CREATININE 1.6 mg/dL (0.6-1.3); POTASSIUM 4.7 mmol/L (3.5-5.1); TOTAL BILIRUBIN 0.3 mg/dL (<0.1-1.0); TOTAL PROTEIN 6.8 g/dL (6.4-8.2)
[2019-04-13 08:00] VITALS: BP 121/76
[2019-04-13 09:35] LABS: URINE BILIRUBIN NEGATIVE (Negative); URINE BLOOD NEGATIVE (Negative); URINE CLARITY CLEAR; URINE COLOR YELLOW; URINE GLUCOSE-RANDOM TRACE (Negative); URINE KETONES NEGATIVE (Negative); URINE LEUKOCYTES-REFLEX NEGATIVE (Negative); URINE NITRITE-REFLEX NEGATIVE (Negative); URINE PROTEIN NEGATIVE (Negative); URINE UROBILINOGEN 0.2 E.U./dl (0.2-1.0)
--- NOTE | 2019-04-13 11:47 | NUR ---
PATIENT IS ALERT AND ORIENTED X 4 THIS AM. SHE STATES HER PAIN CONTINUES AT A 7 ON PAIN SCALE. PATIENT HAS BEEN TALKING ON THE PHONE MOST OF THE AM. SHE WAS ASSISTED UP TO THE BATHROOM WITH WALKER AND O2. TELE SHOWS CONTINUED SR. SOME OF THE PATIENT'S CONVERSATION SHE SEEMS TO HAVE DIFFICULTY FINDING THE APPROPRIATE WORDS TO EXPRESS HERSELF. WILL CONTINUE TO MONITOR PATIENT PROGRESS. NO FALLS OR INJURY.
[2019-04-13 12:00] VITALS: BP 130/86
[2019-04-13 16:00] VITALS: BP 136/79
[2019-04-13 20:00] VITALS: BP 97/49
--- NOTE | 2019-04-13 20:00 | NUR ---
RECEIVED REPORT AND ASSUMED CARE OF PT, ASSESSMENT COMPLETED. SLEEPING, CPAP ON WITH 3L CONNECTED. TELEMETRY ON SHOWING SR. WILL CONT TO MONITOR AND ASSIST NEEDED.
--- NOTE | 2019-04-13 23:30 | NUR ---
ASSISTED PT TO BR WITH WALKER. REFUSED TO USE BEDSIDE COMMODE. VERY SLOW DUE TO PAINFUL LT KNEE. PT CONSTANTLY FALLING ASLEEP ON THE COMMODE, WASHING HANDS AND SITTING ON SIDE OF BED FOR MEDS. TOTAL OF 45 MIN AT BEDSIDE TO ACCOMPLISH THIS. EXPLAINED INSULIN DOSES TO PT IN RELATION TO HER BS OF 444, NO COMMENTS OR EXPRESSIONS. IN A SHORT PEROID, PT FELL ASLEEP AND LAYED ACROSS THE BED. ASSISTED INTO BED THE REST OF THE WAY. BED ALARM ON.
[2019-04-14 00:50] VITALS: BP 195/91
[2019-04-14 04:59] VITALS: BP 104/59
--- NOTE | 2019-04-14 06:07 | NUR ---
NO CHANGE IN ASSESSMENT. CONT TO MOVE SLOW AND WITH MUCH ENCOURAGEMENT TO PROCEDE WITH ACTIVITY. WEARING CPAP WHILE SLEEPING WITH O2 CONNECTED. TELEMETRY SR. ACHIEVED HS GOALS OF REST AND SAFETY. HOURLY ROUNDING OBSERVED.
[2019-04-14 07:45] LABS: HEMATOCRIT 43.1 % (37.0-47.0); HEMOGLOBIN 14.3 gm/dL (12.0-15.0); MCH 31.8 pg (26.0-34.0); MCHC 33.2 g/dL (28.0-37.0); MPV 7.9 fl. (7.2-11.1); RBC 4.49 mil/uL (4.20-5.00); RDW-CV 14.4 % (10.5-14.5); WBC 11.1 thou/uL (4.0-11.0)
[2019-04-14 07:54] LABS: CALCIUM 10.5 mg/dL (8.5-10.1); CREATININE 1.6 mg/dL (0.6-1.3); POTASSIUM 4.7 mmol/L (3.5-5.1)
[2019-04-14 08:15] VITALS: BP 118/92
--- NOTE | 2019-04-14 10:11 | NUR ---
vss, assumed care in the am, ASSESSMENT PERFORMED AND CHARTED, FALL PRECAUTIONS IN PLACE AND CALL LIGHT IN REACH, PT IS ON 3L NC AND IS UP WITH STAND BY ASSIST, PT IS TRACING SR ON THE MOONITOR, AND STATES PAIN IN LEFT KNEE UNABLE TO RATE PAIN, PT GOAL IS TO SIT UP IN CAHIR AND WORK WITH PT/OT/RT WILL FOLLOW WITH PLAN OF CARE
[2019-04-14 12:56] VITALS: BP 144/82
[2019-04-14] MEDS ORDERED: RAYOS5 MG PO (13:07)
[2019-04-14] MEDS ORDERED: VOLTAREN GEL 1100 G1 TOP (13:09)
[2019-04-14] MEDS ORDERED: ZPAK PO (13:11)
[2019-04-14 13:38] VITALS: BP 144/82
--- NOTE | 2019-04-14 14:51 | NUR ---
VSS, PT HAS BEEN GIVEN DISCHARGE IRDERS, PT IV AND TELE MONITOR TAKEN OUT, PT DENIES ANY QUESTIONS, PT WAS GIVEN SCRIPTS AND D/C ORDERS, PT TAKEN OUT BY STAFF TO CAR.
== END 2019-04-14 14:40 | disposition home or self-care (01) | DRG 871 ==
LOC: M.ERS 17:05 → M.TBA-ER 18:37 → M.2W 18:37
PROVIDERS: Emergency Medicine Emergency Medical Services; Family Medicine; Internal Medicine; ADMIT Internal Medicine
PROC: 5A09357 Assistance with Respiratory Ventilation, Less than 24 Consecutive Hours, Continuous Positive Airway Pressure (ICD-10-PCS; principal; 2019-04-10)
PROC: 5A09357 Assistance with Respiratory Ventilation, Less than 24 Consecutive Hours, Continuous Positive Airway Pressure (ICD-10-PCS; 2019-04-12)
PROC: 5A09357 Assistance with Respiratory Ventilation, Less than 24 Consecutive Hours, Continuous Positive Airway Pressure (ICD-10-PCS; 2019-04-13)
DX: A41.9 Sepsis, unspecified organism (principal); J18.9 Pneumonia, unspecified organism; J96.01 Acute respiratory failure with hypoxia; I13.0 Hypertensive heart and chronic kidney disease with heart failure and stage 1 through stage 4 chronic kidney disease, or unspecified chronic kidney disease; E44.0 Moderate protein-calorie malnutrition; Z68.43 Body mass index [BMI] 50.0-59.9, adult; J44.0 Chronic obstructive pulmonary disease with (acute) lower respiratory infection; J44.1 Chronic obstructive pulmonary disease with (acute) exacerbation; I50.32 Chronic diastolic (congestive) heart failure; N17.9 Acute kidney failure, unspecified; N18.3 Chronic kidney disease, stage 3 (moderate); E78.5 Hyperlipidemia, unspecified; E11.42 Type 2 diabetes mellitus with diabetic polyneuropathy; F11.90 Opioid use, unspecified, uncomplicated; E66.01 Morbid (severe) obesity due to excess calories; G25.81 Restless legs syndrome; G89.29 Other chronic pain; F41.1 Generalized anxiety disorder; M54.5 Low back pain; E11.22 Type 2 diabetes mellitus with diabetic chronic kidney disease; R65.20 Severe sepsis without septic shock; M17.12 Unilateral primary osteoarthritis, left knee; Z99.81 Dependence on supplemental oxygen; Z90.49 Acquired absence of other specified parts of digestive tract; Z79.82 Long term (current) use of aspirin; Z79.4 Long term (current) use of insulin; Z79.899 Other long term (current) drug therapy; Z88.8 Allergy status to other drugs, medicaments and biological substances; Z87.891 Personal history of nicotine dependence; Z83.3 Family history of diabetes mellitus

== ENCOUNTER → 2019-06-30 | Outpatient (CLI) | payer OTHER ==
[~2019-06-30] MED LIST changes: +RAYOS5 MG PO; +VOLTAREN GEL 1100 G1 TOP; +ZPAK PO
[2019-06-30 14:46] LABS: ALBUMIN 3.2 g/dL (3.4-5.0); CALCIUM 9.4 mg/dL (8.5-10.1); CREATININE 1.5 mg/dL (0.6-1.3); POTASSIUM 4.3 mmol/L (3.5-5.1); TOTAL BILIRUBIN 0.4 mg/dL (<0.1-1.0); TOTAL PROTEIN 7.5 g/dL (6.4-8.2)
[2019-06-30 21:06] LABS: CREATININE CLEARANCE 36 mL/min (88-128); URINE CREATININE 46.8 mg/dL (Not Estab.); URINE CREATININE (GM/24H) 796 mg/24 hr (800-1800)
[2019-06-30 21:06] LABS: COMPLEMENT-C4 32 mg/dL (14-44)
[2019-07-01 08:08] LABS: HEPATITIS B SURFACE AG Negative (Negative)
[2019-07-01 21:06] LABS: GLOBULIN TOTAL 3.7 g/dL (2.2-3.9); M-SPIKE Not Observed g/dL (Not Observed)
[2019-07-02 05:11] LABS: ANA INTERPRETATION Negative (Negative)
[2019-07-02 07:08] LABS: URINE PROTEIN 73 mg/24 hr (30-150); URINE PROTEIN (MG/DL) 4.3 mg/dL (Not Estab.)
[2019-07-02 10:12] LABS: GLOMERULR BASEM MEMBRN AB 2 units (0-20)
== END ==
LOC: M.ULTRA 13:17 → M.LAB 13:17 → M.ULTRA 13:30
PROVIDERS: Internal Medicine Nephrology
DX: N18.3 Chronic kidney disease, stage 3 (moderate) (principal)